=== PATIENT | female | born 1975 | race Caucasian/White ===

== ENCOUNTER → 2024-03-24 09:41 | Outpatient (REF) | payer BC, OTHER, SELFPAY | LOC: HWRAD 09:41 | PROVIDERS: ATTENDING PHYSICIAN Obstetrics & Gynecology; FAMILY PHYSICIAN Nurse Practitioner | DX: N93.0 Postcoital and contact bleeding (principal); Z11.3 Encounter for screening for infections with a predominantly sexual mode of transmission; Z20.2 Contact with and (suspected) exposure to infections with a predominantly sexual mode of transmission | CPT/HCPCS: 76830; 76856 ==

== ENCOUNTER 2024-03-24 15:25 | Emergency (ER) | payer BC, OTHER, SELFPAY ==
[2024-03-24 15:27] VITALS: BP 143/87
[2024-03-24 16:14] VITALS: BMI 16.3
[2024-03-24] MEDS: NEURONTIN 300 MG PO (16:51)
[2024-03-24 17:06] LABS: Hematocrit 38.9 % (37.0-47.0); Hemoglobin 13.2 g/dL (12.0-16.0); Mean Corp Hgb Conc. 33.9 g/dL (33.0-37.0); Mean Corpuscular Hgb 30.3 pg (27.0-31.0); Mean Corpuscular Volume 89.2 fL (81.0-99.0); Platelet Count 240 10^3/uL (130-400); Red Blood Cell Count 4.36 10^6/uL (4.20-5.40); Red Cell Dist. Width 12.3 % (11.5-14.5); White Blood Cell Count 8.6 10^3/uL (4.8-10.8)
[2024-03-24 17:20] LABS: ALT (SGPT) 11 U/L (0-35); AST (SGOT) 20 U/L (14-36); Albumin 4.4 g/dl (3.5-5.0); Alkaline Phosphatase 81 U/L (38-126); Blood Urea Nitrogen 14 mg/dl (7-17); Calcium 9.4 mg/dl (8.4-10.2); Carbon Dioxide 26 mmol/L (22-30); Chloride 105 mmol/L (98-107); Estimated Creatinine Clearance 58 ml/min; Glucose 92 mg/dl (70-99); Potassium 4.4 mmol/L (3.5-5.1); Sodium 141 mmol/L (135-145); Total Bilirubin 0.3 mg/dl (0.2-1.3); Total Protein 6.6 g/dl (6.3-8.2); eGFR > 60.00
[2024-03-24 17:31] LABS: Troponin I 0.014 ng/ml
--- NOTE | 2024-03-24 18:18 | ED.GENMED ---
History of Present Illness
General
Chief Complaint: Musculo-Skeletal Complaint
Source: patient
Time Seen by Provider: 03/24/24 16:20
History of Present Illness
History of Present Illness:
This patient is a 48-year-old female who states that she had the gradual onset of mild discomfort in the r scapular area that began yesterday. She describes it as 'burning' also described as 'stabbing'. She also notes a small amount of tingling,
but not numbness, in the right hand. She thought it might be a muscle pull and took some Motrin without relief of symptoms. Today, symptoms continue and appear to be getting worse. She denies recent trauma or falls, fever, chills, nausea,
vomiting, chest pain, neck pain, headache, dyspnea, abdominal pain, dizziness, weakness, or other complaints.
Past History
Past History
ED Past Medical History: Other (Migraines, low iron)
ED Past Surgical History: Appendectomy
Social History
Tobacco: Vaping
Alcohol: Occasional
Drug: None
Personal:
Living: with family
Phy Exam
Physical Exam
Physical Exam:
GENERAL: Alert , in no apparent distress
EYE: pupils equal and reactive
NECK: Supple, no significant adenopathy.
ENT: o/p clr, mmm.
CARDIAC: Regular rate and rhythm .
LUNGS: Clear breath sounds bilaterally, no acute respiratory distress, no wheezes/rales/rhonchi
ABDOMEN: Soft, without focal tenderness, no r/g, no cvat, negMurphy's
NEUROLOGICAL: Alert and oriented, no focal neuro deficits,motot 5/5, sens intact to light touch, cn intact
SKIN: Warm and dry, skin intact. No rash noted
MUSCULOSKELETAL: No edema, well perfused.
PSYCH: Normal and appropriate interaction.
BACK: nontender to palpation, no abnl noted,no ttp at scapular area,no redness/warmth/swelling, etc.
Course
Orders/Labs/Results
Orders:
Orders
03/24/24 16:45
CR Chest - 2 Views Urgent
Comment:
Reason For Exam: R scapular area pain
03/24/24 16:46
Electrocardiogram (*1) Stat
Reason for Study: Other
Other Reason for Exam: chest pain
Cardiac Monitoring- Treatment ONCE
EKG- Treatment ONCE
Gabapentin [Neurontin] 300 mg PO NOW STA
03/24/24 16:57
Complete Blood Count/No Diff Urgent
Comprehensive Metabolic Panel Urgent
Troponin I Urgent
03/24/24 16:57
03/24/24 16:57
Vital Signs
Initial and Last Documented VS:
Initial Vital Signs
Temp Pulse Resp BP Pulse Ox
98.1 F 114 20 143/87 99
03/24/24 15:27 03/24/24 15:27 03/24/24 15:27 03/24/24 15:27 03/24/24 15:27
Last Documented Vital Signs
Temp Pulse Resp BP Pulse Ox
98.1 F 83 16 143/87 100
03/24/24 15:27 03/24/24 16:40 03/24/24 16:40 03/24/24 15:27 03/24/24 16:40
Update Note
Update Note:
Patient presents to the Emergency Department with scapular pain with tingling
Number and Complexity of Problems Addressed at the Encounter
� Chronic conditions affecting care:
� Acute Exacerbation and/or Progression of Chronic Illness:
� Differential Diagnosis includes: but not limited to early shingles, nerve impingement, muscluar strain, etc.
Amount and/or Complexity of Data to be Reviewed and Analyzed
� I performed an independent evaluation of and my interpretation is:
EKG:Read by me, normal sinus rhythm, normal rate, normal axis, no acute ischemia noted
CT:
Xrays: read by me, nad, nl mediastinum
Laboratory Studies:unremarkable
Other:
� Review of other/old records reveals:
� Clinical information was obtained by an independent historian:
� Prescriptions/Medications Considered but not given:
� Further testing considered but not performed:
Risk of Complications and/or Morbidity or Mortality of Patient Management
� Social determinants of health affecting care:
� Discussion with other providers (PCP, Hospitalists, Consultants, etc):
� Escalation of care including admission/observation vs risk of discharge considered:6:48 PM patient remains comfortable in no acute distress, no new symptoms. Labs ECG and chest x-ray reviewed, no specific abnormalities to
suggest dissection, acs, ptx, pna, bony fx, etc etc. Doubt pe (pain not leuritic, etc). May be nerve impingement from spinal stenosis related, vs early shingles. D/w pt import of f/u and reason sto rted.
ED Attending Note
-
Portions of this chart may have been created with voice recognition software.� Occasional wrong word or��sound alike� substitutions may have occurred due to the inherent limitations of voice recognition software.
Discharge Plan
Departure
Patient Disposition: Home (Routine Discharge)
Date of Disposition: 03/24/24
Time of Disposition: 18:50
Patient with high blood pressure during this ER visit?: Yes
Condition: Good
Discharge Problem:
Back pain
Instructions: Upper Back Pain, BLOOD PRESSURE
Prescriptions:
New
gabapentin [Neurontin] 300 mg capsule
300 mg PO BID PRN (Reason: pain) Qty: 30 0RF
Referrals:
Yudy White CRNP [Family Provider] -
Jessie Gomez, DO [Active] - Next open appointment
Activity Restrictions/Additional Instructions:
IF YOU DEVELOP INCREASING/NEW/PERSISTENT PAIN, DEVELOP A RASH, FEVER, VOMITING, ABDOMINAL PAIN, CHEST PAIN, TROUBLE BREATHING, WEAKNESS, SEVERE HEADACHE, OR OTHER WORRISOME SIGNS, GO TO THE ER IMMEDIATELY!
Interventions
Interventions:
*Risk Screen - Suicide Last Done: 03/24/24 15:27
*General Assessment Last Done: 03/24/24 15:27
*Neglect/Abuse Screening Last Done: 03/24/24 15:27
ED- Fall Risk Assessment Last Done: 03/24/24 16:14
*ED COVID-19 Vaccine History Last Done: 03/24/24 16:14
ED-Musculoskeletal Assessment Last Done: 03/24/24 16:14
Discharge Date and Time
Print Language: DIVEHI
== END 2024-03-24 19:03 | disposition home or self-care (01) ==
LOC: EMR 15:25
PROVIDERS: EMERGENCY PHYSICIAN Emergency Medicine; FAMILY PHYSICIAN Nurse Practitioner
DX: M54.6 Pain in thoracic spine (principal); R20.2 Paresthesia of skin; R03.0 Elevated blood-pressure reading, without diagnosis of hypertension; G43.909 Migraine, unspecified, not intractable, without status migrainosus
CPT/HCPCS: 99283; 71046; 80053; 84484; 85027; 93005